=== PATIENT | female | born 1955 | race Caucasian/White ===

== ENCOUNTER 2024-04-02 03:28 | Emergency (ER) | payer MEDICARE, OTHER, SELFPAY ==
[2024-04-02 03:33] VITALS: BP 147/68
--- NOTE | 2024-04-02 03:37 | ED.GENMED ---
History of Present Illness
<GISSELLE Diop - Last Filed: 04/02/24 05:51>
General
Chief Complaint: Fall
Source: patient
Exam Limitations: none
Time Seen by Provider: 04/02/24 03:37
Nursing documentation reviewed up to this point in time: agreed with
History of Present Illness
History of Present Illness:
69-year-old female presents for evaluation of a fall. Pt states that she was ascending a flight of 12 steps at her home at approximately 01:30 in the dark when she 'missed a step' at the top of the stairs and tumbled down the steps, landing on the
left side of her face and left wrist. Pt placed in a c-collar due to reported neck pain upon arrival to the ED. She currently endorses left facial pain with abrasion and mild swelling as well as left wrist pain. Pt also states that she blew her nose
prior to arriving at the ED and noticed blood-tinged nasal discharge. Pt is on ASA 81mg daily, last dose taken at midnight on 04/02. Pt also reports taking 50mg of hydroxyzine and 20mg of melatonin at midnight on 04/02. No reported ETOH, tobacco, or
illicit drug use. Pt denies N/V, LOC prior to and following the fall, dizziness, weakness, changes in vision, rhinorrhea, discharge from the ears, ERNANDEZ, CP, and SOB. Pt denies prior history of falls.
Past History
<GISSELLE Diop - Last Filed: 04/02/24 05:51>
Past History
ED Past Medical History: HTN, Hypercholesterolemia, Psychiatric (Anxiety, depression, alcohol abuse) and Other (Systemic mastocytosis maintained on sertraline daily as well as hydroxyzine)
ED Past Surgical History: , Gynecological (Breast biopsy), Orthopedic (Bilateral knee replacement) and Other
Social History
Tobacco: Non-smoker
Alcohol: Chronic alcoholic
Drug: None
Personal:
Living: with family
Employment: Retired
Family History
Family History: Other (Alcoholism in family)
Review of Systems
<GISSELLE Diop - Last Filed: 04/02/24 05:51>
Review of Systems
Allergies reviewed?: Yes
Constitutional: Reports no symptoms
EENT: Reports no symptoms
Respiratory: Reports no symptoms
Cardiac: Reports no symptoms
ABD/GI: Reports no symptoms
: Reports no symptoms
Musculoskeletal: Reports joint pain (left wrist ), joint swelling (left wrist ) and neck pain
Skin: Reports other (abrasion)
Neurological: Reports no symptoms
Hematologic/Lymphatic: Reports bruising
Phy Exam
<GISSELLE Diop - Last Filed: 04/02/24 05:51>
General Physical Exam
General Presentation: well appearing (pt currently in cervical collar )
General age: appears stated age
General Skin: warm
General Habitus: normal
General Mental: alert
General Hydration: appears well hydrated
ENT Exam
ENT Exam: EOMI, TM's normal (no hemotympanum ) and normocephalic
Eye Exam
Eye Exam: PERRL and EOMI
Cardiovascular Exam
Cardiovascular Exam: regular rate/rhythm, no edema and no murmur
Pulmonary Exam
Pulmonary Exam: lungs clear and no respiratory distress
Neurological Exam
Neurological Exam: alert, oriented x3, no motor deficits, no sensory deficits and speech normal
Musculoskeletal Exam
Musculoskeletal Exam: joint swelling (left wrist ), neuro vasc intact and other (Reduced note specialist strength of left hand. Markedly edematous left distal radial wrist. Pain with flexion and extension of left wrist.)
Skin Exam
Skin Exam: other (Abrasion of left maxillary area with mild swelling and ecchymosis.)
Psychiatric Exam
Psychiatric Exam: normal mood/affect
Course
<GISSELLE Diop - Last Filed: 04/02/24 05:51>
Orders/Labs/Results
Orders:
Orders
04/02/24 03:39
CT Cervical Spine W/o Iv Contr Urgent
Comment:
Reason For Exam: fall down steps, post neck pain
CT Head W/o Iv Contrast Urgent
Comment:
Reason For Exam: fall down steps, head injury
04/02/24 03:48
Wrist, Left 3 Views CR [CR Wrist - Left Min 3 Views] Urgent
Comment:
Reason For Exam: fall
04/02/24 04:22
Splints/Slings/Crut- Treatment ONCE
Crutches: No
Sling to: Left Arm
Location: Left
Type of Splint: Sugar Ton
04/02/24 04:32
Ibuprofen [Motrin] 600 mg PO NOW STA
Oxycodone/Acetaminophen [Percocet 5/325] 1 tablet PO NOW STA
04/02/24 04:33
Ice Pack-Treatment DIRECTED
Location: lower lip/face, left wrist
04/02/24 04:51
Facial Bones wo Contrast CT [CT Facial Bones W/o Iv Contras] Urgent
Comment:
Reason For Exam: L maxillary sinus opacif/L facial trauma
Vital Signs
Initial and Last Documented VS:
Initial Vital Signs
Temp Pulse Resp BP Pulse Ox
99.0 F 78 17 147/68 95
04/02/24 03:33 04/02/24 03:33 04/02/24 03:33 04/02/24 03:33 04/02/24 03:33
Last Documented Vital Signs
Temp Pulse Resp BP Pulse Ox
99.0 F 74 18 118/70 99
04/02/24 03:33 04/02/24 05:47 04/02/24 05:47 04/02/24 05:47 04/02/24 05:47
<Parvin Rodríguez, DO - Last Filed: 04/02/24 05:40>
Orders/Labs/Results
Orders:
Orders
04/02/24 03:39
CT Cervical Spine W/o Iv Contr Urgent
Comment:
Reason For Exam: fall down steps, post neck pain
CT Head W/o Iv Contrast Urgent
Comment:
Reason For Exam: fall down steps, head injury
04/02/24 03:48
Wrist, Left 3 Views CR [CR Wrist - Left Min 3 Views] Urgent
Comment:
Reason For Exam: fall
04/02/24 04:22
Splints/Slings/Crut- Treatment ONCE
Crutches: No
Sling to: Left Arm
Location: Left
Type of Splint: Sugar Ton
04/02/24 04:32
Ibuprofen [Motrin] 600 mg PO NOW STA
Oxycodone/Acetaminophen [Percocet 5/325] 1 tablet PO NOW STA
04/02/24 04:33
Ice Pack-Treatment DIRECTED
Location: lower lip/face, left wrist
04/02/24 04:51
Facial Bones wo Contrast CT [CT Facial Bones W/o Iv Contras] Urgent
Comment:
Reason For Exam: L maxillary sinus opacif/L facial trauma
Vital Signs
Initial and Last Documented VS:
Initial Vital Signs
Temp Pulse Resp BP Pulse Ox
99.0 F 78 17 147/68 95
04/02/24 03:33 04/02/24 03:33 04/02/24 03:33 04/02/24 03:33 04/02/24 03:33
Last Documented Vital Signs
Temp Pulse Resp BP Pulse Ox
99.0 F 74 18 118/70 99
04/02/24 03:33 04/02/24 05:47 04/02/24 05:47 04/02/24 05:47 04/02/24 05:47
Procedures
<Parvin Rodríguez DO - Last Filed: 04/02/24 05:40>
Splint Check
Splint checked by provider?: Yes
Circulation/Movement/Sensation post splint application: brisk cap refill, full sensation and pulses intact
<GISSELLE Diop - Last Filed: 04/02/24 05:51>
MDM/Problems Addressed
Differential Diagnosis Includes:
Basilar skull fracture, epidural hematoma, subdural hematoma, cervical spine fracture, fracture of left wrist
<GISSELLE Diop - Last Filed: 04/02/24 05:51>
*Critical Care Note
Total Time (30-74mins, 75-104mins- exclusive of procedures): Not Applicable
<DO Sandro Stark Last Filed: 04/02/24 05:40>
*Radiology
Radiology exam reviewed: preliminary read by ED provider (Left wrist x-ray shows mildly comminuted intra-articular distal radius fracture with very minimal dorsal angulation.) and radiology read reviewed (CT of the head, cervical spine shows no
acute intracranial findings, no fracture.)
*Pulse Oximetry
Patient hypoxic: no
<GISSELLE Diop - Last Filed: 04/02/24 05:51>
Update Note
Update Note:
04/02/2024 04:22 - fracture of left distal radius
ED Attending Note
<GISSELLE Diop - Last Filed: 04/02/24 05:51>
-
Portions of this chart may have been created with voice recognition software.� Occasional wrong word or��sound alike� substitutions may have occurred due to the inherent limitations of voice recognition software.
<DO Sandro Stark Last Filed: 04/02/24 05:40>
ED Attending Note
Patient seen and examined by attending physician: Yes
I performed the substantive portion of visit, reviewed & personally made and approve the management plan that is documented in note by myself or AUGIE.: Yes
ED Attending Note:
This is a 69-year-old woman who resides at home with her . She has remote history of alcohol abuse but has been sober for quite some time.
She and her are readying to relocate to [place] and as such has her house on the market. She awoke around 1:30 this morning remembering that she forgot to finish laundry thus went down the stairs to transfer her wash from the washer
machine to the dryer and upon walking back up carpeted steps she was at the top of the steps, missed her footing and fell backwards down a flight of steps. She admits to striking the left side of her face while tumbling down and injuring her left
wrist. No loss of consciousness, she has been ambulatory since fall without difficulty with ambulation. She denies headache, denies dizziness or lightheadedness, denies weakness or numbness. She does complain of moderate pain about her left wrist
that is much worse with attempted range of motion of her wrist. She denies pain to her hand or digits nor upper arm pain.
She does note mild posterior neck pain but states this is chronic and unchanged.
She has history of obstructive sleep apnea, uses CPAP and had her mouthguard in her mouth when she fell down the steps and has sustained a contusion to her mid to left lower lip. She denies dental pain nor injury, denies jaw pain, no sore throat or
difficulty swallowing. She denies epistaxis but she did blow her nose prior to arrival and noted scant blood on the tissue. No vision difficulty. She denies nausea nor vomiting, no chest pain or abdominal pain. She does note superficial abrasion
left lateral knee but no pain and has been ambulating without difficulty nor pain.
She takes no anticoagulants save for low-dose aspirin.
She has not taken anything for pain prior to arrival via private vehicle.
She is right-hand dominant.
TRAUMA EXAM:
VITAL SIGNS: Vital signs reviewed, cooperative. 69-year-old woman appears her stated age, bright and alert, pleasant, easily communicative and appears in no acute distress. Cervical collar placed in triage.
DISTRESS: No active disease
EYES: Pupils reactive, no orbital trauma
NOSE: No deformity or epistaxis. Nares are patent without epistaxis. Nose is midline, nontender.
FACE AND SCALP: No scalp trauma, there is soft tissue contusion and superficial abrasion left cheek with mild local tenderness to palpation and mild local soft tissue swelling. There is no dental pain. Full mandible range of motion without
difficulty nor pain. There is soft tissue contusion with ecchymosis of left mid to lateral lower lip with a superficial 4 mm linear laceration mucosal surface of the lower lip that is well-approximated. No active bleeding. External canals no blood
NECK: Supple, no midline bony tenderness.
BACK: Back nontender, pelvis stable to compression
RESPIRATORY: No distress, breath sounds normal, no tender chest wall
CARDIAC: No murmur, pulses equal and strong
ABDOMEN: Soft nontender bowel sounds normal
SKIN: Warm and dry, normal color. Good turgor.
EXTREMITIES: Moderate tenderness about the radial aspect of the left wrist with mild to moderate local soft tissue swelling and markedly limited range of motion related to pain. No tenderness to the hand or digits nor forearm nor elbow. Radial
pulses are full and equal bilaterally. Distal sensation and strength intact.
NEUROLOGICAL: Alert, oriented, no motor deficits. Gait is herzog and steady.
PSYCH: Mood affect normal
Concern for left wrist fracture, closed head injury, cervical spine fracture, left maxillary fracture.
CT of the head and cervical spine results are pending.
Left wrist x-ray shows comminuted intra-articular fracture of the distal radius with very minimal dorsal angulation.
Will medicate for pain with Percocet and ibuprofen. Patient has taken these medications in the past without adverse effects.
Will plan for sugar-tong splint to left forearm/wrist and arm sling.
Left lower lip contusion with superficial laceration not requiring suture repair.
04/02/[address] of the head and cervical spine showed no fracture, no acute intracranial injury.
Upon my review there is complete opacification of the left maxillary sinus which I suspect is blood with history of bloody discharge from nose after blowing. Concern for occult left maxillary sinus fracture thus will check CT of facial bones.
04/02/[address] facial cm shows no acute fracture or. Diffuse paranasal sinus disease with complete opacification of the left maxillary sinus.
Left forearm has been placed in a sugar-tong splint by nursing staff. Splint checked by myself and is found to be in excellent position. Distal sensation and strength intact. Patient will be placed in an arm sling.
Prescription for Percocet as well as ibuprofen has been provided.
Discussed importance of no alcohol beverages while taking narcotic pain medicine.
Recommend ice, elevation, soft foods over the next several days.
Will refer to orthopedics for follow-up/further evaluation of left wrist fracture.
Discharge Plan
Departure
Patient Disposition: Home (Routine Discharge)
Date of Disposition: 04/02/24
Time of Disposition: 05:33
Patient with high blood pressure during this ER visit?: No
Condition: Good
Discharge Problem:
Closed fracture of left distal radius, Contusion of face, lower lip contusion, Acute cervical myofascial strain, Fall down steps
Instructions: Soft Diet, Preventing falls in adults, Cervical Muscle Strain, How to care for a splint, Contusion, Wrist Fracture
Prescriptions:
New
oxycodone-acetaminophen [Percocet] 5-325 mg Tablet
1 tab PO Q6HPRN PRN (Reason: pain) Qty: 10 0RF
ibuprofen 600 mg tablet
600 mg PO QID PRN (Reason: fever or pain) Qty: 20 0RF
No Action
cetirizine 10 MG tablet
10 mg PO DAILY
omeprazole 40 MG capsule,delayed release(DR/EC)
40 mg PO QPM
aspirin 81 MG tablet,delayed release (DR/EC)
81 mg PO QPM
amlodipine 10 MG tablet
10 mg PO DAILY
desloratadine [Clarinex] 5 MG tablet
5 mg PO DAILY
mirtazapine 30 MG tablet
30 mg PO HS
montelukast 10 MG tablet
10 mg PO QPM
hydroxyzine HCl 25 MG tablet
25 mg PO DAILY
fluocinonide 1 APPLIC cream
1 applic topical BIDPRN PRN (Reason: systemic mastosis )
rosuvastatin [Crestor] 40 MG tablet
40 mg PO QPM
calcium-vitamin D3-vitamin K 1 EACH tablet,chewable
1 tab PO DAILY
hydroxyzine HCl 25 MG tablet
50 mg PO QPM
Lactobac 2-Bifido 1-S. therm [High Potency Probiotic] 1 CAP capsule
2 cap PO DAILY
denosumab [Prolia] 60 MG/ML syringe
60 mg SQ [id number]
Patient Comments:
patient next dose is 11/23/21
oxazepam 15 MG capsule
15 mg PO Q6 Qty: 30 0RF
Rx Instructions:
2 caps (30mg) every 6 hours for 1 day, then 1 cap every 6 hours for 2 days, then 1 cap every 6 hours as needed only.
oxazepam 15 mg capsule
See Rx Instructions .ROUTE .COMPLEX Qty: 20 0RF
Rx Instructions:
2 caps QID x 1 day, then 1 cap QID x 2 days, then 1 QID as needed.
Referrals:
Honey Ibarra I., DO [Active] - Call in 1-3 days for appt
Paz Cook CRNP [Family Provider] - As needed
Interventions
Interventions:
*Risk Screen - Suicide Last Done: 04/02/24 03:33
*General Assessment Last Done: 04/02/24 03:33
*Neglect/Abuse Screening Last Done: 04/02/24 03:33
*ED COVID-19 Vaccine History Last Done: 04/02/24 03:33
*Nursing Disposition Last Done: 04/02/24 05:47
ED-Musculoskeletal Assessment Last Done: 04/02/24 03:49
ED- Neurological Assessment Last Done: 04/02/24 03:49
ED-Skin Assessment Last Done: 04/02/24 03:49
Discharge Date and Time
Discharge Date/Time: 04/02/24 05:47
Print Language: WELSH
[2024-04-02 03:49] VITALS: BMI 34.2
[2024-04-02] MEDS: PERCOCET 5/325 1 TABLET PO (04:36)
[2024-04-02] MEDS: MOTRIN 600 MG PO (04:37)
[2024-04-02 05:47] VITALS: BP 118/70
== END 2024-04-02 05:47 | disposition home or self-care (01) ==
LOC: EMR 03:28
PROVIDERS: EMERGENCY PHYSICIAN Emergency Medicine; FAMILY PHYSICIAN Nurse Practitioner Adult Health
DX: S52.572A Other intraarticular fracture of lower end of left radius, initial encounter for closed fracture (principal); S52.612A Displaced fracture of left ulna styloid process, initial encounter for closed fracture; S00.83XA Contusion of other part of head, initial encounter; S00.531A Contusion of lip, initial encounter; S16.1XXA Strain of muscle, fascia and tendon at neck level, initial encounter; W10.9XXA Fall (on) (from) unspecified stairs and steps, initial encounter; F41.9 Anxiety disorder, unspecified; F32.A Depression, unspecified
CPT/HCPCS: 99284; 29125; 70450; 70486; 72125; 73110

== ENCOUNTER → 2024-04-03 12:32 | Outpatient (REF) | payer MEDICARE, OTHER, SELFPAY | LOC: RCS 12:32 | PROVIDERS: ATTENDING PHYSICIAN Orthopaedic Surgery; FAMILY PHYSICIAN Nurse Practitioner Adult Health | DX: Z01.818 Encounter for other preprocedural examination (principal) | CPT/HCPCS: 93005 ==

== ENCOUNTER 2024-04-09 06:03 | Day surgery (SDC) | payer MEDICARE, OTHER, SELFPAY ==
[2024-04-09] VITALS (8 sets, daily range): BP systolic 104–121; BP diastolic 49–64; BMI 33.7
[2024-04-09] MEDS: NORMOSOL-R 1000 IV (06:35)
[2024-04-09] MEDS: TYLENOL 1000 MG PO (06:35)
[2024-04-09] MEDS: CELEBREX 200 MG PO (06:35)
== END 2024-04-09 10:48 | disposition home or self-care (01) ==
LOC: SDS 06:03
PROVIDERS: ATTENDING PHYSICIAN Orthopaedic Surgery
DX: S52.572A Other intraarticular fracture of lower end of left radius, initial encounter for closed fracture (principal); W10.8XXA Fall (on) (from) other stairs and steps, initial encounter; Y92.008 Other place in unspecified non-institutional (private) residence as the place of occurrence of the external cause
CPT/HCPCS: 25609; C1713